=== PATIENT | female | born 1940 | race Caucasian/White ===

== ENCOUNTER 2017-10-24 10:07 | Inpatient (IN) ==
[2017-10-24] MEDS ORDERED: OXYCODONE Oral CONC 10 MG/0.5 ML ORAL.SYG SL STA (10:18)
[2017-10-24] MEDS ORDERED: *HR* FentaNYL (PF) 100 MCG/2 ML VIAL IVP ONE (10:24)
--- NOTE | 2017-10-24 10:56 | Emergency Department Note ---
Disposition Clinical Impression: Patellar fracture Qualifiers: Encounter type: initial encounter Fracture type: closed Fracture morphology: comminuted Fracture alignment: displaced Laterality: left Qualified Code(s): S82.042A - Displaced comminuted fracture of left patella, initial encounter for closed fracture Disposition: Home, Self-Care Condition: Good Time of Disposition: 13:20 General Adult HPI - General Chief complaint: ED Fall Stated complaint: Knee injury LLE Time Seen by Provider: 10/24/17 10:15 Source: EMS Mode of arrival: ambulatory Limitations: no limitations Nursing Notes Reviewed: Yes Vital Signs Reviewed: Yes - History of Present Illness HPI Narrative: Patient is 77-year-old female with no pertinent past medical history presenting for evaluation of left knee injury. Patient states that she was walking outside of her [employer] on wet pavement and then she slipped forward and slowly came down onto her left knee. The patient denies any other injury or falling and hitting her head. No loss of consciousness. She states she stayed on the ground she was picked up by squad. States her pain is currently 7 out of 10. She denies any numbness or tingling. Pain Scale: 7 - Related Data Home Medications Medication Instructions Recorded Confirmed LORazepam [Ativan] 0.5 mg PO HS PRN 10/24/17 10/24/17 Nortriptyline [Pamelor] 10 mg PO HS 10/24/17 10/24/17 Allergies Allergy/AdvReac Type Severity Reaction Status Date / Time trazodone AdvReac Dizziness Verified 10/24/17 14:56 All systems ED: reviewed and negative except as stated. Review of Systems: As Per HPI Constitutional: Denies: fever Cardiovascular: Denies: chest pain, palpitations Respiratory: Denies: cough, dyspnea, wheezes Gastrointestinal: Denies: abdominal pain, nausea, vomiting Genitourinary: Denies: urgency, dysuria Musculoskeletal: Reports: arthralgia (left knee pain). Denies: back pain, neck pain, myalgia Integumentary: Reports: abrasion (left knee). Denies: rash Neurological: Denies: headache, weakness Past Medical History - Past Medical History Attestation: Yes The following information was validated with the patient. Medical history: Reports: no medical history, other Psychiatric history: Reports: anxiety - Social History Smoking Status: Never smoker Smokeless Tobacco Status: No Alcohol use: Reports: none Drug use: Reports: none Physical Exam CONSTITUTIONAL: Alert and oriented X3, well-nourished, well appearing, in no apparent distress HEAD: Normocephalic; atraumatic. EYES: PERRL, no scleral icterus. NOSE: The nose is normal in appearance without rhinorrhea RESP: Normal chest excursion with respiration; breath sounds clear and equal bilaterally; no wheezes, rhonchi, or rales CARD: Regular rhythm, without murmurs, rub or gallop ABD: Non-distended; non-tender, soft,without rigidity, rebound or guarding EXT: Patient has swelling and deformity to the left knee. 2+ pulses in the distal extremity. Sensation intact. ROM limited secondary to pain of left knee. No calf tenderness. No involvement of the joint above and below the knee. SKIN: Normal for age and race; warm and dry; no apparent lesions - General Limitations: no limitations General appearance: alert, in no apparent distress Course Course Narrative: Patient is obvious deformity to left knee plan at this time is to perform a knee x-ray will also treat the patient's pain. Patient's knee x-ray showed a patellar fracture of the left knee. Discussed the patient's case with the orthopedist emr implementation specialist Dr. Bolaños he recommended knee immobilizer and crutches/walker. States that this is an injury at the patient is able to go home with a long as she can ambulate without difficulty. The patient was ambulated and she had a large amount of pain on ambulation and difficulty in relating with a walker. The patient discuss her concerns of being at home living by herself and not having family that can come and check on her frequently. She states that she does not feel safe going home. Discussed with the patient that I agree with this plan and that the patient is a fall risk and she may need admission to the hospital for placement into a rehabilitation facility patient agrees with this plan I made these discussions with the orthopedist emr implementation specialist and also the hospitalist. Vital Signs Temperature 98.6 F 10/24/17 10:09 Pulse Rate 62 10/24/17 10:09 Respiratory Rate 20 10/24/17 10:09 Blood Pressure 187/71 10/24/17 10:09 O2 Sat by Pulse Oximetry 97 10/24/17 10:09 Temperature 98.8 F 10/24/17 15:16 Pulse Rate 73 10/24/17 15:16 Respiratory Rate 14 10/24/17 15:16 Blood Pressure 178/73 10/24/17 15:16 O2 Sat by Pulse Oximetry 98 10/24/17 15:16 Oxygen Delivery Oxygen Delivery Room Air Medical Decision Making - Medical Records Medical records reviewed: Yes I reviewed the patient's medical records. - Radiology Data Radiology results reviewed: Yes I reviewed the patient's radiology results. Knee X-Ray 10/24/17 10:17 IMPRESSION: Comminuted distracted patellar fracture. D/ / Logan Mckinley MD / Logan Mckinley MD Interpreting Provider: Logan Mckinley MD
--- NOTE | 2017-10-24 11:09 | Emergency Department Note ---
Disposition Clinical Impression: Patellar fracture Qualifiers: Encounter type: initial encounter Fracture type: closed Fracture morphology: comminuted Fracture alignment: displaced Laterality: left Qualified Code(s): S82.042A - Displaced comminuted fracture of left patella, initial encounter for closed fracture Disposition: Still a Patient Referrals: Maura Machado MD [Primary Care Provider] - Forms: ED Satisfaction Letter General Adult HPI - General Chief complaint: ED Fall Stated complaint: Knee injury LLE Time Seen by Provider: 10/24/17 10:15 Source: EMS Mode of arrival: ambulatory Limitations: no limitations - History of Present Illness Pain Scale: 7 - Related Data Home Medications Medication Instructions Recorded Confirmed Lorazepam 10/07/17 Pamelor 10/07/17 Previous Rx's Medication Instructions Recorded Azithromycin [Zithromax] 0 mg PO Q24H #6 tablet 10/07/17 Allergies Allergy/AdvReac Type Severity Reaction Status Date / Time trazodone Allergy Nightmare Verified 10/07/17 15:22 Constitutional: Denies: fever Cardiovascular: Denies: chest pain, palpitations Respiratory: Denies: cough, dyspnea, wheezes Gastrointestinal: Denies: abdominal pain, nausea, vomiting Genitourinary: Denies: urgency, dysuria Musculoskeletal: Reports: arthralgia (left knee pain). Denies: back pain, neck pain, myalgia Integumentary: Reports: abrasion (left knee). Denies: rash Neurological: Denies: headache, weakness Past Medical History - Past Medical History Medical history: Reports: no medical history, other Psychiatric history: Reports: anxiety - Social History Smoking Status: Never smoker Smokeless Tobacco Status: No Alcohol use: Reports: none Drug use: Reports: none Physical Exam - General Limitations: no limitations General appearance: alert, in no apparent distress Course Vital Signs Temperature 98.6 F 10/24/17 10:09 Pulse Rate 62 10/24/17 10:09 Respiratory Rate 20 10/24/17 10:09 Blood Pressure 187/71 10/24/17 10:09 O2 Sat by Pulse Oximetry 97 10/24/17 10:09 Temperature 98.6 F 10/24/17 10:09 Pulse Rate 59 10/24/17 10:50 Respiratory Rate 16 10/24/17 10:50 Blood Pressure 163/115 10/24/17 10:50 O2 Sat by Pulse Oximetry 98 10/24/17 10:50 Oxygen Delivery Oxygen Delivery Room Air Attestation Statement - Attestation Attestation: I examined this patient and my medical decision-making was reviewed with the Resident Physician. I agree with the documented findings, disposition and treatment plan as described except to the extent set forth below. 77 year old female presnets to the ED with coplaints of mechanical fall on a concrete sidewalk without injuring her head or neck and only her left knee. There is an obvisous deformity. She is neurovascuarly in tact and has motor and sensory in tact no defecits. Patient XR represents communiated patellar fracture and we will consult with ortho about surigcal needs due to degree of seperation.
--- NOTE | 2017-10-24 14:57 | Internal Med History&Physical ---
Date of Encounter: 10/24/17 Time of Encounter: 14:20 Internal Medicine - H&P: HPI Admitted From: Emergency Dept Plans for Post Hospital Care: Home History of present illness: Ms. Montoya is a 77 year old female that denies any PmHx. Pt states she was walking outside at [employer] when she slipped and fell on the pavement. She fell down on her left knee. She developed pain in the left knee. ED discussed case with orthopedic physician. CODE STATUS: FULL In ED Labs not done. Will order now. X ray left ankle IMPRESSION: Comminuted distracted patellar fracture. Past Med Surg Social Fam HX - Past Medical History Medical history: no medical history, other Psychiatric history: anxiety - Social History Smoking Status: Never smoker Smokeless Tobacco Status: No Alcohol use: none Drug use: none Internal Medicine - H&P: Meds LORazepam [Ativan] 0.5 mg PO HS PRN 10/24/17 [History] Nortriptyline [Pamelor] 10 mg PO HS 10/24/17 [History] 3 Allergy/AdvReac Type Severity Reaction Status Date / Time trazodone AdvReac Dizziness Verified 10/24/17 14:56 All Systems PM: A 10-system review of systems was performed and is negative for pertinent findings except as documented above in the HPI. - Constitutional Vitals: Temp Pulse Resp BP Pulse Ox 98.6 F 60 18 147/59 96 10/24/17 10:09 10/24/17 11:48 10/24/17 14:17 10/24/17 14:17 10/24/17 11:48 General appearance: Present: A&O X 3, no acute distress - Head Head exam: Present: atraumatic, normocephalic - Eye Eye exam: Present: PERRL, conjuntiva pink, sclera anicteric Pupils: Present: PERRL - Neck Neck exam general surgery: Present: supple, trachea midline. Absent: lymphadenopathy - Respiratory Respiratory exam: Present: CTAB. Absent: accessory muscle use, rales, rhonchi, wheezes - Cardiovascular Cardiovascular exam: Present: RRR, +S1, +S2. Absent: diastolic murmur, gallop, rubs, systolic murmur - GI/Abdominal GI/Abdominal exam: Present: normal bowel sounds, soft, no peritoneal signs. Absent: distended, tenderness - Extremities Exam Extremities exam: Present: warm, radial pulses palpable and symmetrical. Absent : calf tenderness, cyanotic, pedal edema Additional comments: left knee pain swelling and joint tenderness. decreased ROM due to pain. - Neurological Exam Neurological exam: Present: CN II-XII intact, oriented X3, no focal deficits. Absent: pronater drift, facial droop, speech deficit - Skin Skin exam: Present: dry, intact - Assessment and plan (1) Patellar fracture Current Visit: Yes Status: Acute Assessment and plan: Pt seen by orthopedic and possible surgery on 10/25/2017. PRN pain control. Qualifiers: Encounter type: initial encounter Fracture type: closed Fracture morphology: comminuted Fracture alignment: displaced Laterality: left Qualified Code(s): S82.042A - Displaced comminuted fracture of left patella, initial encounter for closed fracture - Time Spent With Patient Total time spent is greater than 50% in coordination of care (as documented) at patient's floor/unit and/or counseling patient: 25 - 35 minutes
[2017-10-24] MEDS ORDERED: Naloxone 0.4 MG/ML INJ IVP PRN (15:58)
[2017-10-24] MEDS ORDERED: Acetaminophen 325 MG TABLET PO PRN (15:58)
[2017-10-24] MEDS ORDERED: *HR* HYDROcodone/Acet 5/325 mg TABLET PO PRN (15:58)
[2017-10-24] MEDS ORDERED: *HR* LORazepam 1 MG TABLET PO PRN (16:03)
[2017-10-24 16:41] LABS: Basophils # 0.1 K/mcL (0.0-0.2); Basophils % 0.5 %; Eosinophils # 0.1 K/mcL (0.0-0.6); Hematocrit 36.4 % (35.3-44.9); Hemoglobin 11.8 g/dL (11.5-15.4); Immature Granulocytes % 0.3 % (0-4); Lymphocytes # 1.7 K/mcL (0.6-4.6); Lymphocytes % 13.9 %; Mean Corpuscular HGB Conc 32.4 g/dL (31.6-35.5); Mean Corpuscular Hemoglobin 28.2 pg (28.0-33.3); Mean Corpuscular Volume 87.1 fL (83.0-100.0); Monocytes # 0.8 K/mcL (0.0-1.3); Monocytes % 6.6 %; Neutrophils # 9.3 K/mcL (1.6-8.9); Platelet Count 321 K/mcL (140-400); Red Blood Count 4.18 M/mcL (3.82-4.97); Red Cell Distribution Width 13.4 % (11.5-14.5); Segmented Neutrophils % 77.7 %
[2017-10-24 17:02] LABS: BUN/Creatinine Ratio 21 (6-26); Blood Urea Nitrogen 19 mg/dL (8-23); Calcium 9.8 mg/dL (8.6-10.3); Carbon Dioxide 28 mEq/L (23-29); Chloride 104 mEq/L (98-107); Glucose 142 mg/dL (70-105); Osmolality,Calculated 295 (280-300); Potassium 3.8 mEq/L (3.5-5.1); Sodium 140 mEq/L (136-145); eGFR For African Americans > 60 (> 60); eGFR For Non-African Americans 60 (> 60)
[2017-10-25] MEDS ORDERED: *HR* HYDROcodone/Acet 5/325 mg TABLET PO ONE (01:12)
--- NOTE | 2017-10-25 08:31 | Orthopedic Consult Note ---
Date of Encounter: 10/25/17 Time of Encounter: 08:31 Assessment and Plan (1) Patellar fracture Current Visit: Yes Status: Acute The diagnosis and treatment options were discussed with Rhiannon. Due to the nature of her fracture, the fact she typically ambulates in the community and her inability to actively extend her leg or perform a straight leg raise, the patient has elected to proceed with open reduction internal fixation of the left patella at this time. The risks and benefits of the procedure were fully explained in detail, including but not limited to the risk of infection, neurovascular injury, continued pain or stiffness, failure of surgery, reinjury , or need for additional surgery, DVT, PE, general risks of anesthesia and loss of limb or life. No guarantees were given or implied and all questions were answered. The patient understands all the risks and does wish to proceed with written consent. Surgery will be scheduled in a timely manner. Qualifiers: Encounter type: initial encounter Fracture type: closed Fracture morphology: comminuted Fracture alignment: displaced Laterality: left Qualified Code(s): S82.042A - Displaced comminuted fracture of left patella, initial encounter for closed fracture History of Present Illness HPI: Ms. Montoya is a 77 year old female with no significant past medical history who yesterday had a mechanical fall onto her left knee outside of [employer]. She fell directly onto the knee. She had immediate pain, swelling, and deformity over the anterior knee following the fall. Denies any chest pain, shortness of breath, blacking out or other prodromal symptoms prior to the fall. She has been unable to straighten the leg on her own since the fall. Denies any other injury or pain in other extremities. Denies numbness or tingling distally. She is a community ambulator. Past Med Surg Social Fam HX - Past Medical History Medical history: no medical history, other Psychiatric history: anxiety - Past Surgical History Additional surgical history: tonsilectomy - Social History Smoking Status: Never smoker Smokeless Tobacco Status: No Alcohol use: none Drug use: none - Family History Father Hx Family Cardiac Disorders: Yes (afib) Mother Hx Family Cardiac Disorders: Yes (heart failure) Medications and Allergies LORazepam [Ativan] 0.5 mg PO HS PRN 10/24/17 [History] Nortriptyline [Pamelor] 10 mg PO HS 06/10/18 [History] 3 Allergy/AdvReac Type Severity Reaction Status Date / Time trazodone AdvReac Dizziness Verified 10/24/17 14:56 All Systems Reviewed: The remainder of the systems were reviewed and are negative except as noted in HPI Physical Exam - Constitutional Vitals: Temp Pulse Resp BP Pulse Ox 98.0 F 54 16 139/61 97 10/25/17 07:31 10/25/17 07:31 10/25/17 07:31 10/25/17 07:31 10/25/17 07:31 Exam: Consult Exam: Constitutional -Vitals reviewed -The patient is well developed and well nourished. -Mood is pleasant. -The patient is well groomed. Psychiatric -The patient is fully alert and oriented x 3. Respiratory: -Respiratory effort normal Abdomen: -Soft abdomen -Non tender -Non distended: Left upper extremity: -No deformities. The overlying skin is intact. No obvious signs of acute trauma. -No tenderness to palpation throughout. -No significant pain with passive motion of the shoulder, elbow, wrist, and fingers within the limits of the bed. -Able to make an "OK" sign, cross the index and long fingers, and extend the thumb. -Sensation grossly intact to light touch throughout the median, radial, and ulnar distributions. -Radial pulse is present; Fingers have good capillary refill. Right upper extremity: -No deformities. The overlying skin is intact. No obvious signs of acute trauma. -No tenderness to palpation throughout. -No significant pain with passive motion of the shoulder, elbow, wrist, and fingers within the limits of the bed. -Able to make an "OK" sign, cross the index and long fingers, and extend the thumb. -Sensation grossly intact to light touch throughout the median, radial, and ulnar distributions. -Radial pulse is present; Fingers have good capillary refill. Left lower extremity: -Deformity over left anterior knee with palpable defect. The overlying skin is intact with underlying effusion. -Tenderness to palpation over anterior knee. No other TTP. -Unable to perform straight leg raise -No pain with passive motion of the hip, ankle, and toes within the limits of the bed. -No pain with axial loading of the thigh. -Able to dorsiflex and plantarflex the ankle and toes. -Sensation is grossly intact to light touch throughout the sural, saphenous, superficial peroneal, and deep peroneal distributions. -Toes have good capillary refill. Right lower extremity: -No deformities. The overlying skin is intact. No obvious signs of acute trauma. -No tenderness to palpation throughout. -No pain with passive motion of the hip, knee, ankle, and toes within the limits of the bed. -No pain with axial loading of the thigh. -Able to dorsiflex and plantarflex the ankle and toes. -Sensation is grossly intact to light touch throughout the sural, saphenous, superficial peroneal, and deep peroneal distributions. -Toes have good capillary refill. Imaging: XR left knee reviewed and shows a comminuted distracted patella fracture Results - Labs Result Diagrams: 10/24/17 16:24 10/24/17 16:24 Labs: Abnormal lab results WBC 12.0 K/mcL (4.3-11.1) H 10/24/17 16:24 Neutrophils # 9.3 K/mcL (1.6-8.9) H 10/24/17 16:24 Glucose 142 mg/dL (70-105) H 10/24/17 16:24 H & H 10/24/17 Range/Units 16:24 Hgb 11.8 (11.5-15.4) g/dL Hct 36.4 (35.3-44.9) % All other labs normal. Consult Discharge Plan - Plan Referrals: Maura Machado MD [Primary Care Provider] -
--- NOTE | 2017-10-25 09:46 | Internal Med Progress Note ---
<Jhon Hernández - Last Filed: 10/25/17 13:39> Date of Encounter: 10/25/17 Time of Encounter: 09:44 - Assessment and plan (1) Patellar fracture Current Visit: Yes Status: Acute Assessment and plan: Left comminuted distracted patellar fracture s/p fall Ortho following Anticipate surgery this afternoon PT/OT consulted Anticipate discharge once cleared by ortho Qualifiers: Encounter type: initial encounter Fracture type: closed Fracture morphology: comminuted Fracture alignment: displaced Laterality: left Qualified Code(s): S82.042A - Displaced comminuted fracture of left patella, initial encounter for closed fracture (2) DVT prophylaxis Current Visit: Yes Status: Acute Assessment and plan: Start Lovenox after surgery - Time Spent With Patient Total time spent is greater than 50% in coordination of care (as documented) at patient's floor/unit and/or counseling patient: - Subjective Interval history: Patient seen and examined resting comfortably in bed. Patient reports pain with left knee ROM. She is NPO awaiting surgery this afternoon. - Constitutional Vitals: Temp Pulse Resp BP Pulse Ox 98.0 F 54 16 139/61 97 10/25/17 07:31 10/25/17 07:31 10/25/17 07:31 10/25/17 07:31 10/25/17 07:31 General appearance: Present: A&O X 3, pleasant, no acute distress, answers questions appropriately - Head Head exam: Present: atraumatic, normocephalic - Eye Eye exam: Present: PERRL, conjuntiva pink, sclera anicteric Pupils: Present: PERRL - ENT ENT exam: Present: mucous membranes dry, normal oropharynx - Neck Neck exam general surgery: Present: supple, trachea midline. Absent: lymphadenopathy - Respiratory Respiratory exam: Present: CTAB. Absent: accessory muscle use, rales, rhonchi, wheezes - Cardiovascular Cardiovascular exam: Present: RRR, +S1, +S2. Absent: diastolic murmur, gallop, rubs, systolic murmur - GI/Abdominal GI/Abdominal exam: Present: normal bowel sounds, soft, no peritoneal signs. Absent: distended, tenderness - Extremities Exam Extremities exam: Present: tenderness (left knee, ice and brace in place), warm , radial pulses palpable and symmetrical. Absent: calf tenderness, cyanotic, full ROM, pedal edema - Neurological Exam Neurological exam: Present: CN II-XII intact, oriented X3, no focal deficits. Absent: pronater drift, facial droop, speech deficit - Psychiatric Psychiatric exam: Present: normal affect, normal mood - Skin Skin exam: Present: dry, intact, normal color, warm Internal Medicine: Result - Labs CBC & Chem 7: 10/24/17 16:24 10/24/17 16:24 Labs: Short CBC 10/24/17 Range/Units 16:24 WBC 12.0 H (4.3-11.1) K/mcL Hgb 11.8 (11.5-15.4) g/dL Hct 36.4 (35.3-44.9) % Plt Count 321 (140-400) K/mcL Neutrophils # 9.3 H (1.6-8.9) K/mcL BMP 10/24/17 16:24 Sodium 140 Potassium 3.8 Chloride 104 Carbon Dioxide 28 BUN 19 Creatinine 0.91 Glucose 142 H Calcium 9.8 - ABG Interpretation ABG results: PT/INR, D-dimer PT 11.0 Seconds (9.4-12.1) 10/24/17 16:24 - Pulse Oximetry Interpretation Digit-Finger Pulse Oximetry Readin (On RA) - VTE Documentation of Mechanical Device: Intermittent pneumatic compression device Consult Discharge Plan - Plan Referrals: Maura Machado MD [Primary Care Provider] - <Elton Jack - Last Filed: 10/25/17 17:07> Date of Encounter: 10/25/17 - Assessment and plan (1) Patellar fracture Current Visit: Yes Status: Acute Qualifiers: Encounter type: initial encounter Fracture type: closed Fracture morphology: comminuted Fracture alignment: displaced Laterality: left Qualified Code(s): S82.042A - Displaced comminuted fracture of left patella, initial encounter for closed fracture (2) DVT prophylaxis Current Visit: Yes Status: Acute - Time Spent With Patient Total time spent is greater than 50% in coordination of care (as documented) at patient's floor/unit and/or counseling patient: - Constitutional Vitals: Temp Pulse Resp BP Pulse Ox 98 F 58 18 124/57 99 10/25/17 11:10 10/25/17 11:10 10/25/17 11:10 10/25/17 11:10 10/25/17 11:10 Internal Medicine: Result - Labs CBC & Chem 7: 10/24/17 16:24 10/24/17 16:24 - ABG Interpretation ABG results: PT/INR, D-dimer PT 11.0 Seconds (9.4-12.1) 10/24/17 16:24 - Attending Attestation I examined this patient and my medical decision-making was reviewed with the Resident Physician Dr. Hernández I agree with the documented findings, disposition and treatment plan as described except to the extent set forth below. Ms. Motnoya is a 77 y/o F with no significant PMH presented to ER with fall, Left knee pain. X ray of Left knee showed comminuted distractaed patellar fx. Pt is shceduled for surgery today. Gen: A, A< O x 3 Chest: CTA Heart: S1S2+ Ext: Swelling and tenderness over Left knee a/p 1. Left Knee patellar fx 2. Ambulatory dysfunction scheduled for surgery today PT / OT michelle
--- NOTE | 2017-10-25 14:30 | Anesthesia Evaluation PreOp ---
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) Other Medical History: Denies Any Significant HX Anesthesia History: No Prior Anesthetic Complications (never had anesthesia previously except colonoscopy; no fhx of problems with anesthesia that she knows of) Alcohol Use: none Drug use: none Medications and Allergies LORazepam [Ativan] 0.5 mg PO HS PRN 10/24/17 [History] Nortriptyline [Pamelor] 10 mg PO HS 10/24/17 [History] 3 Allergy/AdvReac Type Severity Reaction Status Date / Time trazodone AdvReac Dizziness Verified 10/24/17 14:56 - Meds/Allergy Pre-op Review Medications Reviewed: Yes Allergies Reviewed: Yes Beta Blockers on Current Med List: No Anesthesia Results - Labs 10/24/17 16:24 10/24/17 16:24 Anesthesia Exam Last Vital Signs Temp 98 F 10/25/17 11:10 Pulse 58 10/25/17 11:10 Resp 18 10/25/17 11:10 BP 124/57 10/25/17 11:10 Pulse Ox 99 10/25/17 11:10 Weight: 44 kg NPO (# of Hours): > 8 hrs - HEENT Pupil (Motor): Pupils equal, EOMI Mallampati: I Teeth: Normal Oral Opening: Greater than 3 - BLUEPRINT ENGINEER LOC: Oriented - Cardiac Rhythm: Regular Murmur: None - Pulmonary Breath Sounds: bilateral Clear Respiratory Effort: Symmetrical Anesthesia Assess/Plan ASA Score: 2 Modified Clarissa Scale for Level of Consciousness: Cooperative, oriented, and tranquil Anesthetic Plan: General Monitoring Plan: Standard Monitors Recovery Plan: PACU
[2017-10-25] MEDS ORDERED: *HR* FentaNYL (PF) 100 MCG/2 ML VIAL ONE (14:51)
[2017-10-25] MEDS ORDERED: *HR* Midazolam HCl 2 MG/2 ML VIAL ONE (14:51)
[2017-10-25] MEDS ORDERED: *HR* Propofol 200 MG/20 ML VIAL IVP ONE (14:52)
[2017-10-25] MEDS ORDERED: Lidocaine -MPF 2% 2 ML VIAL ONE (14:53)
[2017-10-25] MEDS ORDERED: Lidocaine -MPF 4% 5 ML AMPUL ONE (14:55)
[2017-10-25] MEDS ORDERED: Ondansetron 4 MG/2 ML VIAL ONE (15:34)
[2017-10-25] MEDS ORDERED: Dexamethasone 4 MG/ML VIAL ONE (15:34)
[2017-10-25] MEDS ORDERED: EPHEDrine 50 MG/ML VIAL ONE (15:35)
[2017-10-25] MEDS ORDERED: *HR* OxyCODONE Immed Rel 5 MG TABLET PO PRN (16:07)
[2017-10-25] MEDS ORDERED: *HR* Promethazine 25 MG/ML VIAL IVP PRN ×2 (16:07→19:26)
[2017-10-25] MEDS: *HR* Morphine 2 MG/ML SYRINGE IVP PRN ×4 (17:43→18:20)
[2017-10-25] MEDS ORDERED: *HR* Labetalol 20 MG/4 ML SYRINGE IVP PRN (17:50)
[2017-10-25] MEDS ORDERED: *HR* Enoxaparin 30 MG/0.3 ML SYRINGE SQ SCH (18:00)
[2017-10-25] MEDS ORDERED: Ringers Solution, Lactated 1,000 ML ONE (18:05)
[2017-10-25] MEDS ORDERED: *HR* Labetalol 100 MG/20 ML MDV IVP PRN (18:30)
--- NOTE | 2017-10-25 18:31 | Orthopedic Operative Note ---
Date of procedure: 10/25/17 Procedure: Procedure: Open reduction internal fixation left patella Preoperative diagnosis: Left knee patella fracture Post operative diagnosis: Same Surgeon: Logan Soni MD Water Plant Pump Operator: None Anesthesia: General EBL: 50 cc Complications: None INDICATIONS: This is a 77 yo F who injured her left knee yesterady after falling onto her knee. She had pain, swelling and an inability to extend the knee following the fall. She had a palpable defect over the anterior knee, inability to straight leg raise, and x-ray consistent with a displaced transverse patella fracture with a lateral sagittal split. The pros and cons of operative and nonoperative treatment options were discussed with the patient and she did elect to proceed with open reduction internal fixation left patella. The risks and benefits of the procedure were fully explained. Those risks include but are not limited to, infection, neurovascular injury, continued pain, arthritis, stiffness, further injury, need for further surgery, DVT, PE, loss of limb, and loss of life. The patient understood all of these risks and wished to proceed. Informed consent was obtained. OPERATIVE REPORT: The patient was identified in the holding area. The left lower extremity was marked, the patient was taken to the operating room and placed in the supine position. All bony prominences were well padded. The anesthesiologist performed successful general anesthetic for the remainder of the case. A tourniquet was placed in the left upper thigh. Preoperative antibiotics were given prior to incision. Patient was prepped and draped in normal sterile fashion. A surgical time out protocol was then performed. An Esmarch was used to exsanguinate the limb and tourniquet was inflated. Longitudinal incision was made over the anterior knee extending from proximal to the patella down the tibial tubercle. Cautery was used to coagulate any skin bleeders. Medial and lateral soft tissue flaps were raised. A large hematoma was evacuated and the patella fracture was visualized. There was a transverse fracture at the central portion of the patella with a nondisplaced sagittal split with extension both medially and laterally into the retinaculum. The edges of the fracture site were exposed with a curette and sharpley with a knife, taking care to preserve soft tissue at the fracture site. The fracture was then reduced with 2 pointed reduction clamps, and 2 guide wires were then passed from the inferior pole of patella to the superior pole, exiting along the anterior margin of the superior patella. Fluoroscopy was used to confirm reduction and guidewire placement and the chondral surface was palpated. The guidewires were overdrilled and the appropriately sized 4.0 mm cannulated screws were placed. 20 gauge wire was then brought through the cannulated screws and anteriorly over the patella in figure of 8 fashion for tension band fixation. The wire was then secured and buried superiorly beneath the quadriceps tendon. A cerclage stitch was then placed with #2 FiberWire through the patellar and quadriceps tendon and suture was again tied at the superior pole of the patella. The joint was then copiously irrigated with normal saline. #2 Ethibond was then used to close the medial and lateral retinacular tears in [id number] fashion. We then took the knee through range of motion and the repair was stable from full extension to 90 degrees of flexion. The tourniquet was then let down and any bleeders were coagulated. The wound was again copiously irrigated with normal saline. Subcutaneous tissue was closed with 2-0 strata fix, and 3-0 strata fix subcuticular. A sterile zip line dressing was then placed. A sterile wrap was then placed over the knee and the patient was placed in a knee immobilizer locked in full extension. She was then awoken by anesthesia and taken the PACU in stable condition. There were no complications. Postop plan: She will be weight-bearing as tolerated with the brace locked in full extension. We will start advancing range of motion at first postop visit. Was there an information assistant present: No Estimated blood loss (cc): 50
--- NOTE | 2017-10-25 18:36 | Anesthesia Evaluation Post Op ---
Date of Encounter: 10/25/17 Time of Encounter: 18:30 - Vital Signs Vital Signs: Vital Signs/O2 Sat, Most Current Temp Pulse Resp BP Pulse Ox 99.2 F 62 20 201/76 97 10/25/17 18:06 10/25/17 18:16 10/25/17 18:16 10/25/17 18:16 10/25/17 18:16 3 Vital Signs Time 1830 BP 167/68 Pulse 67 Resp 14 O2 Sat 96 - Lungs Lungs: Clear Ascult./Percussion - Airway Airway: Non-obstructed - Cardiovascular Regular Rate - Mental Status Mental Status: Alert & Oriented, Answers Appropriately - Pain Pain Scale: 5 (patient sleeping had to awaken to ask pain score) Pain Scale used: Numeric (1 - 10) - Nausea Vomiting Nausea Vomiting: Not Present - Hydration Hydration: Ice chips, Has not voided - Discharge PostOp Status: Transfer Patient to floor
[2017-10-25] MEDS ORDERED: *HR* LORazepam 1 MG TABLET PO PRN (19:26)
[2017-10-25] MEDS ORDERED: Acetaminophen 325 MG TABLET PO PRN (19:26)
[2017-10-25] MEDS ORDERED: Naloxone 0.4 MG/ML INJ IVP PRN (19:26)
[2017-10-25] MEDS ORDERED: *HR* Morphine 2 MG/ML SYRINGE IVP PRN (19:26)
[2017-10-26] MEDS: ceFAZolin 2,000 MG in 0.9 % Sodium Chloride 100 ML IVPB SCH ×2 (00:35→08:34)
[2017-10-26] MEDS: *HR* HYDROcodone/Acet 5/325 mg TABLET PO PRN ×2 (06:45→13:00)
[2017-10-26] MEDS: *HR* Enoxaparin 30 MG/0.3 ML SYRINGE SQ SCH ×2 (06:48→17:04)
[2017-10-26 07:26] LABS: Bilirubin,Urine Negative (Negative); Blood,Urine Trace (Negative); Clarity,Urine Clear (Clear); Color,Urine Yellow (Yellow); Glucose,Urine (UA) Normal (Normal); Ketones,Urine Negative (Negative); Leukocyte Esterase,Urine Negative (Negative); Nitrite,Urine Negative (Negative); PH,Urine 6.5 pH Units (5.0-8.0); Protein,Urine Negative (Neg-Trace); Specific Gravity,Urine 1.006 (1.010-1.025); Urobilinogen,Urine Normal (Normal)
[2017-10-26 07:29] LABS: Bacteria,Urine None Seen per hpf (None-Few); Hyaline Casts,Urine None Seen per lpf (None-Few); RBC,Urine 0-3 per hpf (0-3); Squamous Epithelial Cell,Urine Moderate per lpf (None-Few); WBC,Urine 0-3 per hpf (0-3)
--- NOTE | 2017-10-26 13:29 | Internal Med Progress Note ---
Date of Encounter: 10/26/17 Time of Encounter: 13:27 - Assessment and plan (1) Patellar fracture Current Visit: Yes Status: Acute Assessment and plan: Pt is s/p Open reduction internal fixation left patella 10/25/2017. She tolerated procedure well. Reports some pain but controlled by pain med. Daughter and male friend at bedside. Qualifiers: Encounter type: initial encounter Fracture type: closed Fracture morphology: comminuted Fracture alignment: displaced Laterality: left Qualified Code(s): S82.042A - Displaced comminuted fracture of left patella, initial encounter for closed fracture - Time Spent With Patient Total time spent is greater than 50% in coordination of care (as documented) at patient's floor/unit and/or counseling patient: less than 15 minutes - Subjective Interval history: Ms. Montoya is a 77 year old female that denies any PmHx. Pt states she was walking outside [place] [employer] when she slipped and fell on the pavement. She fell down on her left knee. She developed pain in the left knee. ED discussed case with orthopedic physician. Pt sustained patella fracture. Pt states she had some pain this morning. Daughter at bedside, a nurse, informed her she has prn pain meds which I confirmed. She denies fever/chills/N/V/diarrhea. Denies CP or SOB. - Constitutional Vitals: Temp Pulse Resp BP Pulse Ox 98.4 F 73 17 141/56 93 10/26/17 11:56 10/26/17 11:56 10/26/17 11:56 10/26/17 11:56 10/26/17 11:56 General appearance: Present: A&O X 3, pleasant, no acute distress, answers questions appropriately - Head Head exam: Present: atraumatic, normocephalic - Eye Eye exam: Present: PERRL, conjuntiva pink, sclera anicteric Pupils: Present: PERRL - Neck Neck exam general surgery: Present: supple, trachea midline. Absent: lymphadenopathy - Respiratory Respiratory exam: Present: CTAB. Absent: accessory muscle use, rales, rhonchi, wheezes - Cardiovascular Cardiovascular exam: Present: RRR, +S1, +S2. Absent: diastolic murmur, gallop, rubs, systolic murmur - GI/Abdominal GI/Abdominal exam: Present: normal bowel sounds, soft, no peritoneal signs. Absent: distended, tenderness - Extremities Exam Extremities exam: Present: warm, radial pulses palpable and symmetrical. Absent : calf tenderness, cyanotic, pedal edema - Neurological Exam Neurological exam: Present: CN II-XII intact, oriented X3, no focal deficits. Absent: pronater drift, facial droop, speech deficit - Skin Skin exam: Present: dry, intact Internal Medicine: Result - Labs CBC & Chem 7: 10/24/17 16:24 10/24/17 16:24 Labs: Urine 10/26/17 Range/Units 07:00 Urine Color Yellow (Yellow) Urine Clarity Clear (Clear) Urine pH 6.5 (5.0-8.0) pH Units Ur Specific [place] 1.006 L (1.010-1.025) Urine Protein Negative (Neg-Trace) mg/dL Urine Glucose (UA) Normal (Normal) mg/dL - ABG Interpretation ABG results: PT/INR, D-dimer PT 11.0 Seconds (9.4-12.1) 10/24/17 16:24 - Impressions Impressions Fluoroscopy 10/25/17 15:40 IMPRESSION: Intraprocedural fluoroscopic spot images as above. See separate procedure report for more information. D/ / Galen Williamson MD / Galen Williamson MD Interpreting Provider: Galen Williamson MD - VTE Documentation of Mechanical Device: Intermittent pneumatic compression device Consult Discharge Plan - Plan Referrals: Maura Machado MD [Primary Care Provider] -
[2017-10-26] MEDS: *HR* OxyCODONE/APAP 10/325 TABLET PO PRN ×2 (15:46→20:54)
--- NOTE | 2017-10-26 17:05 | Orthopedics Progress Note ---
Date of Encounter: 10/26/17 Time of Encounter: 17:05 - Assessment and Plan (1) Patellar fracture Current Visit: Yes Status: Acute Qualifiers: Encounter type: initial encounter Fracture type: closed Fracture morphology: comminuted Fracture alignment: displaced Laterality: left Qualified Code(s): S82.042A - Displaced comminuted fracture of left patella, initial encounter for closed fracture Subjective Interval history: S: Doing fine s/p ORIF L patella. No fevers or chills, no chest pain, SOB or calf pain. Pain is present but tolerable. AFVSS Hgb 11.8 GEN: NAD, AAOx3 LLE: Dressing c/d/i Distally neurovascularly intact to motor and sensory exam No calf pain or swelling POD#1 s/p ORIF L patella -WBAT with PT with brace locked straight. May range knee from 0-30 degrees in brace. -Continue lovenox for DVT ppx -Continue postoperative care -Discharge planning Objective Vital signs: Vital Signs Temp Pulse Resp BP Pulse Ox 10/26/17 15:37 98.3 F 78 15 162/54 96 10/26/17 11:56 98.4 F 73 17 141/56 93 10/26/17 11:22 97 10/26/17 06:54 97.6 F 73 16 115/66 99 10/26/17 00:28 97.5 F L 70 16 135/55 99 10/25/17 21:54 70 16 138/55 94 10/25/17 19:22 97.7 F 73 20 135/55 98 10/25/17 18:51 98.9 F 74 16 148/61 98 10/25/17 18:36 98.9 F 72 14 149/66 96 10/25/17 18:26 70 18 167/68 98 10/25/17 18:16 62 20 201/76 97 10/25/17 18:06 99.2 F 61 22 193/77 98 10/25/17 17:56 77 22 199/78 98 10/25/17 17:46 73 22 187/81 98 10/25/17 17:36 98.2 F 69 20 186/83 99 Intake and Output 10/26/17 10/26/17 10/26/17 07:59 15:59 23:59 Intake Total 100 / 100 Output Total 350 / 350 200 / 200 Balance 100 / 100 -350 / -350 -200 / -200 Intake: IV Fluids 100 / 100 Ancef 2,000 MG In 0.9 % Sodium 100 / 100 Chloride 100 ML @ 200 mls/hr IVPB Q8HR JOELLE Rx#:[id number] Output: Urine 350 / 350 200 / 200 Other: # Voids 1 1 - Labs CBC & BMP: 10/24/17 16:24 10/24/17 16:24 Labs: Abnormal lab results WBC 12.0 K/mcL (4.3-11.1) H 10/24/17 16:24 Neutrophils # 9.3 K/mcL (1.6-8.9) H 10/24/17 16:24 Glucose 142 mg/dL (70-105) H 10/24/17 16:24 Ur Specific [place] 1.006 (1.010-1.025) L 10/26/17 07:00 Urine Blood Trace (Negative) H 10/26/17 07:00 Ur Squamous Epith Cells Moderate per lpf (None-Few) H 10/26/17 07:00 - VTE Documentation of Mechanical Device: Intermittent pneumatic compression device Consult Discharge Plan - Plan Referrals: Maura Machado MD [Primary Care Provider] -
[2017-10-27] MEDS: *HR* Enoxaparin 30 MG/0.3 ML SYRINGE SQ SCH (06:53)
[2017-10-27 07:08] VITALS: BP 129/63
--- NOTE | 2017-10-27 10:05 | Discharge Summary ---
- NOTES TO OUTPATIENT PROVIDER Notes to Outpatient Provider: Patient admitted for left knee patella fracture. Underwent open reduction and internal fixation. Stable for discharge to skilled rehabilitation at this time. Orders not resulted at time of discharge: Pending orders 10/25/17 15:40 XR patella LT [XR] Routine Date of Encounter: 10/27/17 Time of Encounter: 10:01 - Discharge Diagnosis (1) Patellar fracture Priority: Primary Status: Acute Qualifiers: Encounter type: initial encounter Fracture type: closed Fracture morphology: comminuted Fracture alignment: displaced Laterality: left Qualified Code(s): S82.042A - Displaced comminuted fracture of left patella, initial encounter for closed fracture (2) DVT prophylaxis Priority: Secondary Status: Acute Hospital course: Ms. Mnotoya is a 77 year old female patient with no significant past medical history was hospitalized here after she slipped and fell on pavement resulting in right knee patellar fracture. She was evaluated by orthopedics and underwent open reduction internal fixation of right patella. She is now doing better although she remains in pain in the right knee. She is stable to be discharged from medical and orthopedic standpoint to skilled rehabilitation. She will be on anticoagulation with Lovenox. She will follow up with orthopedics after discharge for further management and follow-up. Discharge discussed with: patient, nurse - Time Spent with Patient Total time spent providing and/or coordinating discharge services: Greater than 30 minutes (40 min) - Discharge Medications Prescriptions: OxyCODONE/APAP 10/325 [Percocet 10/325 MG] 1 each PO Q6HR PRN 5 Days #20 tablet PRN Reason: Severe Pain Enoxaparin [Lovenox] 30 mg SQ Q12HR #20 syringe LORazepam [Ativan] 0.5 mg PO HS PRN 5 Days #5 tablet PRN Reason: Anxiety Home Medications: Nortriptyline [Pamelor] 10 mg PO HS 10/24/17 [History] Enoxaparin [Lovenox] 30 mg SQ Q12HR #20 syringe 10/27/17 [Rx] LORazepam [Ativan] 0.5 mg PO HS PRN 5 Days #5 tablet 10/27/17 [Rx] OxyCODONE/APAP 10/325 [Percocet 10/325 MG] 1 each PO Q6HR PRN 5 Days #20 tablet 10/27/17 [Rx] Allergies/Adverse Reactions: 3 Allergy/AdvReac Type Severity Reaction Status Date / Time trazodone AdvReac Dizziness Verified 10/24/17 14:56 Date of admission: 10/24/17 15:58 Primary care physician: Maura Machado, Consults: 10/24/17 16:03 Consult to Senior Portfolio Manager [CONS] Routine Reason for SW Consult: Discharge Planning 10/25/17 19:26 Consult to Occupational Therapy [CONS] Routine Comment: Evaluate, develop and implement POC Reason for Consult: post ORIF patella surgery Does patient have active BEDREST order?: No Is patient medically & hemodynamically stable?: Yes Consult to Orthopedic Navigator [CONS] [CONS] Routine Consult to Physical Therapy [CONS] Routine Comment: Evaluate, develop and implement POC Reason for Consult: post ORIF patella surgery WBAT with brace locked in extension. May range knee from 0-30 degrees only. Does patient have active BEDREST order?: No Is patient medically & hemodynamically stable?: Yes Consult to Senior Portfolio Manager [CONS] Routine Reason for SW Consult: post -op patella fracture RT Post Op Consult [CONS] Routine Discharging clinician: Michaela Haile Anticipated date of discharge: 10/27/17 - Constitutional Vitals: Temp Pulse Resp BP Pulse Ox 98.5 F 73 14 129/63 95 10/27/17 06:29 10/27/17 06:29 10/27/17 06:29 10/27/17 06:29 10/27/17 09:07 General appearance: Present: A&O X 3, pleasant, no acute distress, answers questions appropriately - Respiratory Respiratory exam: Present: CTAB. Absent: accessory muscle use, rales, rhonchi, wheezes - Cardiovascular Cardiovascular exam: Present: RRR, +S1, +S2. Absent: diastolic murmur, gallop, rubs, systolic murmur - GI/Abdominal GI/Abdominal exam: Present: normal bowel sounds, soft, no peritoneal signs. Absent: distended, tenderness - Extremities Exam Extremities exam: Present: warm, radial pulses palpable and symmetrical. Absent : calf tenderness, cyanotic, pedal edema Additional comments: left lower extremity bandaged - Patient Status Disposition: Transfer SNF Condition: Good Functional capacity at discharge: wheelchair bound Overall status at discharge: patient is progressing back to baseline - Discharge Instructions Follow Up With: Machado,Maura Yoakum, MD [Primary Care Provider] - ( 1-2 weeks) Logan Soni MD [Non-Partnered Physician] - (in 1-2 weeks) - Diet and Activity Activity: as per physical therapy Diet: low fat, low cholesterol, low salt diet - VTE Documentation of Mechanical Device: Intermittent pneumatic compression device
--- NOTE | 2017-10-27 10:12 | Physician Discharge Referral ---
ExtendedCare Referral Info Provider in Charge after Transfer: PCP Institutional Level of Care: Skilled - Diagnosis (1) Patellar fracture Priority: Primary Status: Acute (2) DVT prophylaxis Priority: Secondary Status: Acute Prognosis: Fair Aware of Diagnosis: Patient Aware of Prognosis: Patient - Transfer Medications Prescriptions: OxyCODONE/APAP 10/325 [Percocet 10/325 MG] 1 each PO Q6HR PRN 5 Days #20 tablet PRN Reason: Severe Pain Enoxaparin [Lovenox] 30 mg SQ Q12HR #20 syringe LORazepam [Ativan] 0.5 mg PO HS PRN 5 Days #5 tablet PRN Reason: Anxiety Home Medications: Nortriptyline [Pamelor] 10 mg PO HS 10/24/17 [History] Enoxaparin [Lovenox] 30 mg SQ Q12HR #20 syringe 10/27/17 [Rx] LORazepam [Ativan] 0.5 mg PO HS PRN 5 Days #5 tablet 10/27/17 [Rx] OxyCODONE/APAP 10/325 [Percocet 10/325 MG] 1 each PO Q6HR PRN 5 Days #20 tablet 10/27/17 [Rx] Allergies/Adverse Reactions: 3 Allergy/AdvReac Type Severity Reaction Status Date / Time trazodone AdvReac Dizziness Verified 10/24/17 14:56 - Respiratory Orders Smoking Cessation: Smoking cessation has been advised. For more information, call the [place] Tobacco Quit Line at 7-394-WWSI-NOW. - Ancillary Orders May consult with Dentist, Taxi Truck Driver, Associate Professor Of Medicine PRN - Advance Directives Code Status: Full Code - Rehabiliation Orders Rehab Potential: Fair Rehab Orders: Evaluation for Physical Therapy, Evaluation for Occupational Therapy - Diet Orders Cardiac CERTIFICATION: I certify that the transfer of the above named patient to an Extended Care Facility is necessary for the continuing treatment of the diagnosis listed. The above information is true and accurate reflection of patient's current condition. Confidential - Redisclosure prohibited without a patient's written consent.
[2017-10-27] MEDS: *HR* HYDROcodone/Acet 5/325 mg TABLET PO PRN (11:22)
== END 2017-10-27 12:27 | DRG 517 ==
LOC: 3NENU 10:07 → EMEROO 10:07 → 3NENU 14:52
PROVIDERS: ADMIT Family Medicine; ATTEND Family Medicine